=== PATIENT | female | born 1965 | race Caucasian/White ===

== ENCOUNTER 2016-12-01 08:04 | Emergency (ER) | payer OTHER ==
[2016-12-01 08:11] VITALS: BP 148/88; PULSE 79; TEMP 97.8; BMI 33.5
[2016-12-01] MEDS ORDERED: NAPROXEN 500 MG TABLET (FP) PO ONE (09:00)
--- NOTE | 2016-12-01 09:02 | PDOC ---
History of Present Illness - General Chief Complaint: Pain Stated Complaint: LT LEG PAIN Time Seen by Provider: 12/01/16 08:39 History Source: Patient Exam Limitations: No Limitations - History of Present Illness Initial Comments: 12/01/16 09:06 CHIEF COMPLAINT: Ankle pain left HISTORY OF PRESENT ILLNESS: Patient is a 51-year-old female with a history of depression and anxiety here today complaining of left lateral ankle pain for 5 days. She reports that she was in the bathtub and and slightly twisted her ankle and felt pain to lateral aspect. Patient went to urgent care yesterday was given an Joe wrap had x-ray done that she was told that she does not have any fracture. Patient reports that area is very tender with bearing weight and is an 8 out of 10 aching in nature. Patient was not given crutches or air cast. Patient has noticeable swelling to lateral aspect. Patient took ibuprofen for relief of pain last time yesterday. She denies any numbness of left foot or ankle. 12/02/16 19:16 Occurred: reports: last week Severity: Yes: moderate Lower Extremity Pain Location: left: ankle Method of Injury: Yes: twisted (slightly ) Modifying Factors: improves with: immobilization Lower Ext. 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) Diabetes: No HTN: No Hypercholesterolemia: No Psychiatric Problems: Yes (depression, anxiety) - Psycho/Social/Smoking Cessation Hx Anxiety: Yes Suicidal Ideation: No Smoking Status: No Smoking History: Never smoked Have you smoked in the past 12 months: No Number of Cigarettes Smoked Daily: 0 Hx Alcohol Use: No Drug/Substance Use Hx: No Substance Use Type: None Review of Systems - Review of Systems Able to Perform ROS?: Yes Constitutional: No: Symptoms Reported HEENTM: No: Symptoms Reported Respiratory: No: Symptoms reported Cardiac (ROS): No: Symptoms Reported ABD/GI: No: Symptoms Reported : No: Symptoms Reported Musculoskeletal: Yes: Joint Pain (left lateral ankle ), Joint Swelling (left lateral ankle ) Integumentary: Yes: Other (swelling left lateral ankle ) Neurological: No: Symptoms reported *Physical Exam - Vital Signs Last Vital Signs Temp Pulse Resp BP Pulse Ox 97.8 F 79 20 148/88 98 12/01/16 08:08 12/01/16 08:08 12/01/16 08:08 12/01/16 08:08 12/01/16 08:08 - Physical Exam General Appearance: Yes: Appropriately Dressed Vascular Pulses: Doralis-Pedis (L): 4+ Extremity: positive: Normal Capillary Refill, Tender (left lateral ankle ), Swelling (left lateral ankle ). negative: Normal Range of Motion (left ankle ) Integumentary: positive: Swelling (left lateral ankle ) Neurologic: negative: Numbness, Sensory Deficit (left lateral anle ) Deep Tendon Reflexes: Ankle (L): 4+ (no induration ) Medical Decision Making - Medical Decision Making 12/01/16 09:08 Patient is a 51-year-old female with a history of depression and anxiety here today complaining of left lateral ankle pain for 5 days. She reports that she was in the bathtub and and slightly twisted her ankle and felt pain to lateral aspect. Patient went to urgent care yesterday was given an Joe wrap had x-ray done that she was told that she does not have any fracture. Patient reports that area is very tender with bearing weight and is an 8 out of 10 aching in nature. Patient was not given crutches or air cast. Patient has noticeable swelling to lateral aspect. Patient took ibuprofen for relief of pain last time yesterday. She denies any numbness of left foot or ankle. Left ankle sprain PLAN: joe wrap 3 inch, aircast applied crutches given naprosyn 500 mg now than bid prrn pain # 14 tabs ortho consult *DC/Admit/Observation/Transfer Diagnosis at time of Disposition: Left ankle sprain Qualifiers: Encounter type: initial encounter Involved ligament of ankle: unspecified ligament Qualified Code(s): S93.402A - Sprain of unspecified ligament of left ankle, initial encounter - Discharge Dispostion Disposition: HOME Condition at time of disposition: Stable - Prescriptions Prescriptions: Naproxen [Naprosyn -] 500 mg PO BID PRN #14 tablet PRN Reason: Pain - Referrals Referrals: Karen Morgan MD [Primary Care Provider] - Elias Jefferson MD [Staff Physician] - - Patient Instructions Additional Instructions: FOLLOW UP WITH DR. JEFFERSON [phone] ORTHOPEDIST SOON POSSIBLE CONTINUE TO ELEVATE LEFT FOOT AND USE JOE WRAP AND AIRCAST AND USE CRUTCHES FOR AMBULATION TAKE ACETAMINOPHEN NEEDED IN [place] DOSES OF NAPROSYN PATIENT VOICED UNDERSTANDING OF DISCHARGE INSTRUCTIONS AND ALL QUESTIONS WERE ANSWERED
[2016-12-01] MEDS ORDERED: NAPROXEN 500 MG TABLET (FP) ONE (09:14)
== END 2016-12-01 09:23 | disposition home or self-care (01) ==
LOC: JERFT 08:04
PROC: 2W3MX1Z Immobilization of Left Lower Extremity using Splint (ICD-10-PCS; principal; 2016-12-01)
DX: S93.402D Sprain of unspecified ligament of left ankle, subsequent encounter (principal); X50.1XXD Overexertion from prolonged static or awkward postures, subsequent encounter
CPT/HCPCS: 29515; 99281-25